=== PATIENT | male | born 1930 | race Caucasian/White ===

== ENCOUNTER 2017-08-09 11:35 | Emergency (ER) | payer MEDICARE ==
[~2017-08-09] VITALS: Ht 188 cm; Wt 81.6 kg
[2017-08-09 12:06] VITALS: BP 114/60
== END 2017-08-09 12:41 | disposition home or self-care (01) ==
LOC: ER 11:35
DX: S51.812A Laceration without foreign body of left forearm, initial encounter (principal); I10 Essential (primary) hypertension; W23.0XXA Caught, crushed, jammed, or pinched between moving objects, initial encounter; Y93.89 Activity, other specified; Y92.89 Other specified places as the place of occurrence of the external cause; Y99.8 Other external cause status